=== PATIENT | male | born 1985 | race Caucasian/White ===

== ENCOUNTER 2016-06-22 21:40 | Emergency (ER) | payer BC, OTHER ==
[2016-06-22] MEDS ORDERED: OXYCODONE-ACETAMINOPHEN 5-325 MG TABLET PO ONE (22:35)
--- NOTE | 2016-06-22 22:36 | ER Document Report ---
ED Hip Pain/Injury - General Mode of Arrival: Ambulatory Information source: Patient TRAVEL OUTSIDE OF THE [place] IN LAST 30 DAYS: No - HPI Patient complains to provider of: Injury, Hip - right Occurred: This afternoon Context: Fell/tripped Associated Symptoms: Other - see above Other injuries: RLE - right knee <TREVOR KIRKLAND - Last Filed: 06/22/16 22:42> <COSTA MILLER - Last Filed: 06/22/16 23:31> - General Chief Complaint: Hip Pain Stated Complaint: FALL RIGHT HIP PAIN Notes: 30 year old male with history of a spinal cord injury (fused C3-C4) on 2014 presents to the ED complaining of right hip pain secondary to falling this afternoon at around 14:00. Patient states that he is unable to catch himself with his hands, so when he falls he attempts to avoid hitting his head. Patient also complains of an abrasion to the right knee and bilateral lower back pressure. Patient states that he walks alone without assistance. Patient is on Gabapentin. Patient received lower back surgery in 2012. (TREVOR KIRKLAND) - Related Data Allergies/Adverse Reactions: No Known Allergies Allergy (Unverified 08/15/12 00:44) Past Medical History - General Information source: Patient - Social History Smoking Status: Current Every Day Smoker Cigarette use (# per day): Yes - 1 ppd Frequency of alcohol use: None Family History: Reviewed & Not Pertinent Neurological Medical History: Reports: Other - spinal cord injury 2014 Skin Medical History: Reports Hx Cellulitis Traumatic Medical History: Reports: Hx Fractures Past Surgical History: Reports: Hx Orthopedic Surgery - lower back surgery 2012 and C3-C4 fusion 2014 - Immunizations Immunizations up to date: No Hx Diphtheria, Pertussis, Tetanus Vaccination: No <TREVOR KIRKLAND - Last Filed: 06/22/16 22:42> Review of Systems - Review of Systems Constitutional: No symptoms reported EENT: No symptoms reported Cardiovascular: No symptoms reported Respiratory: No symptoms reported Gastrointestinal: No symptoms reported Genitourinary: No symptoms reported Male Genitourinary: No symptoms reported Musculoskeletal: See HPI, Joint pain - right hip Skin: See HPI, Other - right knee abrasion Hematologic/Lymphatic: No symptoms reported Neurological/Psychological: No symptoms reported -: Yes All other systems reviewed and negative <TREVOR KIRKLAND - Last Filed: 06/22/16 22:42> Physical Exam - Vital signs Interpretation: Normal - General General appearance: Alert In distress: None - HEENT Head: Normocephalic, Atraumatic Eyes: Normal Extraocular movements intact: Yes Pupils: PERRL - Respiratory Respiratory status: No respiratory distress - Cardiovascular Rhythm: Regular - Abdominal Inspection: Normal - Back Back: Normal - Extremities General upper extremity: No: Normal inspection - see hand exam below General lower extremity: Normal ROM. No: Normal inspection - see hip and knee exam below Wrist: Limited ROM - flexion at bilateral wrists. No: Normal Hand: Other - extensor contractures of the bilateral fingers. No: Normal Hip: Tender - right hip tender to palpate., Other - Pelvis stable and non- tender.. No: Normal, Instability Knee: Normal, Nontender - right knee non-tender - Neurological Neuro grossly intact: Yes - except weakness to bilateral upper extremities - Psychological Associated symptoms: Normal affect, Normal mood - Skin Skin Temperature: Warm Skin Moisture: Dry Skin Color: Normal <TREVOR KIRKLAND - Last Filed: 06/22/16 22:42> <COSTA MILLER - Last Filed: 06/22/16 23:31> - Vital signs Vitals: Temp Pulse Resp BP Pulse Ox 98.7 F 71 14 118/77 99 06/22/16 22:29 06/22/16 22:29 06/22/16 22:29 06/22/16 22:29 06/22/16 22:29 (COSTA MILLER) Course - Diagnostic Test Radiology reviewed: Image reviewed, Reports reviewed - X-ray of the right hip does not show fracture. <COSTA MILLER - Last Filed: 06/22/16 23:31> - Vital Signs Vital signs: Temp Pulse Resp BP Pulse Ox 98.7 F 71 14 118/77 99 06/22/16 22:29 06/22/16 22:29 06/22/16 22:29 06/22/16 22:29 06/22/16 22:29 (COSTA MILLER) Discharge <TREVOR KIRKLAND - Last Filed: 06/22/16 22:42> <COSTA MILLER - Last Filed: 06/22/16 23:31> - Discharge Clinical Impression: Contusion of right hip Qualifiers: Encounter type: initial encounter Qualified Code(s): S70.01XA - Contusion of right hip, initial encounter Condition: Stable Disposition: HOME, SELF-CARE Additional Instructions: Hip Contusion: Your injury has resulted in a contusion -- a crushing of the deep tissues. No injury to important structures was detected during the physician's exam. Contusions vary in the amount of pain they cause, and in the length of time required for healing. Typically, the area will become bruised, and will remain painful to touch for two or three weeks. However, most patients are back to working and playing within a few days. After the initial period of rest and cold-packs, your symptoms (together with the doctor's recommendations) will determine how rapidly you can get back to full activity. Usually this means "do what feels okay, but don't do things that hurt." If re-examination was recommended, it's important to follow up as instructed. Call the doctor or return any time if pain increases, if swelling becomes severe, if you develop numbness or weakness in an injured extremity, or if any other alarming symptoms occur. USE ICE-PACKS FOR THE FIRST 12-24 HOURS, THEN MOIST HEAT. LIMIT WALKING, STANDING AND USING THE HIP MUSCLES. TAKE MOTRIN OR ALEVE, WITH TYLENOL FOR PAIN. FOLLOW UP WITH YOUR DOCTOR IF NOT IMPROVING. RETURN TO THE EMERGENCY ROOM IF ANY NEW OR WORSENING SYMPTOMS. Referrals: RAUL CHAUDHARY MD [Primary Care Provider] - Follow up as needed Scribe Attestation: 06/22/16 23:31 I personally performed the services described in the documentation, reviewed and edited the documentation which was dictated to the scribe in my presence, and it accurately records my words and actions. (COSTA MILLER) Scribe Documentation - Scribe Written by Eda:: Eda Barragan, 06/22/2016 acting as scribe for :: Arthur <TREVOR KIRKLAND - Last Filed: 06/22/16 22:42>
[2016-06-22] MEDS ORDERED: HYDROCODONE/ACETAMINOPHEN 5-325 MG 6 TAB/DSPK PO PRN (23:31)
[2016-06-22 23:47] VITALS: BP 118/67
== END 2016-06-22 23:40 | disposition home or self-care (01) ==
LOC: ER 21:40
DX: S70.01XA Contusion of right hip, initial encounter (principal); S80.211A Abrasion, right knee, initial encounter; W01.0XXA Fall on same level from slipping, tripping and stumbling without subsequent striking against object, initial encounter; Y92.008 Other place in unspecified non-institutional (private) residence as the place of occurrence of the external cause; M25.551 Pain in right hip; F17.210 Nicotine dependence, cigarettes, uncomplicated; Z98.890 Other specified postprocedural states; Z98.1 Arthrodesis status; Z79.899 Other long term (current) drug therapy; Z87.81 Personal history of (healed) traumatic fracture
CPT/HCPCS: 99283